=== PATIENT | male | born 1955 | race Caucasian/White ===

== ENCOUNTER → 2018-10-17 | Outpatient (CLI) | payer SELFPAY ==
[~2018-10-17] MED LIST: LEVAQUIN 5500 MG/TA1 PO; MOTRIN 200200 MG/TAB PO
[2018-10-17 12:06] LABS: BUDDING YEAST Present /hpf; MUCOUS Present /lpf; PH 6 (5-8); SQUAMOUS EPITHELIAL None Seen /hpf; URINE APPEARANCE Turbid; URINE BACTERIA Occasional /hpf; URINE BILIRUBIN Negative (NEGATIVE); URINE BLOOD 2+ (NEGATIVE); URINE COLOR Amber; URINE GLUCOSE 1+ (NEGATIVE); URINE KETONE Negative (NEGATIVE); URINE LEUKOCYTE ESTERASE Trace (NEGATIVE); URINE NITRATE Negative (NEGATIVE); URINE PROTEIN(semi-quant) 2+ (NEGATIVE); URINE RBC >50 /hpf; URINE UROBILINOGEN Negative (NEGATIVE)
[2018-10-17 12:07] LABS: COLLECTION METHOD CLEAN CATCH
[2018-10-17 12:13] LABS: BASO # 0.1 (0.0-0.2); BASO % 0.6 % (0.0-2.0); EOS # 0.2 (0.0-0.7); EOS % 2.3 % (0-4.0); GRAN # 7.2 (1.4-6.5); GRAN % 70.8 % (42.2-75.2); HEMATOCRIT 42.7 % (42.0-52.0); HEMOGLOBIN 14.2 g/dl (13.5-18.0); LYMPH # 1.8 (1.2-3.4); LYMPH % 17.4 % (20.0-51.0); MEAN CELL VOLUME 88 fl (80.0-100.0); MEAN CORPUSCULAR HEMOGLOBIN 29 pg (27.0-31.0); MEAN CORPUSCULAR HGB CONC 33 g/dl (33.0-37.0); MONO # 0.8 (0.1-0.6); MONO % 7.6 % (1.7-9.3); PLATELET COUNT 295 K/mm3 (130-400); RED BLOOD COUNT 4.88 M/mm3 (4.20-5.60); REDCELL DISTRIBUTION WIDTH-CV 13.4 % (11.5-14.5)
[2018-10-17 12:17] LABS: CALCIUM 8.8 mg/dL (8.4-10.2); CREATININE, serum 2.09 (0.66-1.25); POTASSIUM 3.1 mmol/L (3.4-5.0)
== END ==
LOC: COL.LAB 11:36
PROVIDERS: Family Medicine
DX: R31.0 Gross hematuria (principal)

== ENCOUNTER → 2018-10-17 | Outpatient (CLI) | payer SELFPAY | LOC: ZCOL.LAB 12:08 | DX: R31.0 Gross hematuria (principal) ==

== ENCOUNTER → 2018-10-25 | Outpatient (CLI) | payer SELFPAY ==
[~2018-10-25] MED LIST changes: +PREDNISONE20 MG PO; +TENORMIN 2525 MG/TAB PO; +TYLENOL 325MG325 MG PO
[2018-10-25 16:17] LABS: CALCIUM 9.1 mg/dL (8.4-10.2); CREATININE, serum 1.06 (0.66-1.25); POTASSIUM 3.9 mmol/L (3.4-5.0)
== END ==
LOC: ZLAB.STJ 15:09
PROVIDERS: Family Medicine
DX: Z01.89 Encounter for other specified special examinations (principal)

== ENCOUNTER → 2019-01-01 | Outpatient (CLI) | payer SELFPAY ==
[~2019-01-01] MED LIST changes: +FLOMAX 0.40.4 MG/CAP PO
[2019-01-01 12:42] LABS: ALBUMIN 4.1 gm/dL (3.5-5.0); BILIRUBIN,TOTAL 0.8 mg/dL (0.0-1.0); CALCIUM 9.1 mg/dL (8.4-10.2); CREATININE, serum 1.33 (0.66-1.25); POTASSIUM 4.1 mmol/L (3.4-5.0); TOTAL PROTEIN 7.8 gm/dL (6.4-8.2)
[2019-01-01 12:45] LABS: MEAN CELL VOLUME 86 fl (80.0-100.0); MEAN CORPUSCULAR HGB CONC 31 g/dl (33.0-37.0); MEAN PLATELET VOLUME 10.7 fl (7.4-10.4); PLATELET COUNT 135 K/mm3 (130-400); RED BLOOD COUNT 3.64 M/mm3 (4.20-5.60); REDCELL DISTRIBUTION WIDTH-CV 17.7 % (11.5-14.5)
[2019-01-01 12:46] LABS: HEMATOCRIT 31.4 % (42.0-52.0); HEMOGLOBIN 9.6 g/dl (13.5-18.0); MEAN CORPUSCULAR HEMOGLOBIN 26 pg (27.0-31.0)
[2019-01-01 13:12] LABS: THYROID STIMULATING HORMONE 6.23 uIU/mL (0.465-4.680)
[2019-01-01 13:15] LABS: ANISOCYTOSIS 1+; EOSINOPHIL 1 % (0-4); LYMPHOCYTE 33 % (20.0-51.0); METAMYELOCYTE 1 % (0-0); MYELOCYTE 9 % (0-0); NEUTROPHILS 51 % (42.0-75.2); NUCLEATED RED BLOOD CELL 5 (0-6); PLATELET ESTIMATE NORMAL (NORMAL)
[2019-01-01 13:16] LABS: HYPOCHROMIA 3+
== END ==
LOC: ZCOL.LAB 11:42
PROVIDERS: Family Medicine
DX: R53.1 Weakness (principal); R63.4 Abnormal weight loss; R53.83 Other fatigue; R74.8 Abnormal levels of other serum enzymes

== ENCOUNTER → 2019-01-02 | Outpatient (CLI) | payer SELFPAY ==
[~2019-01-02] MED LIST changes: +PERCOCET 325 MG1 TA2 PO; +ZOFRAN ODT4 MG PO
[2019-01-02 10:12] LABS: RETIC # 0.1 M/mm3 (0.02-0.16); RETIC % 2.7 % (0.5-3.52)
[2019-01-02 23:35] LABS: T3 FREE (TRI-IODOTHYRONINE) 2.9 pg/mL (1.7-3.7)
[2019-01-03 00:38] LABS: TRANSFERRIN 218 mg/dL (180-329)
[2019-01-04 04:24] LABS: EBV NUCLEAR ANTIGEN (EBNA)-IgG XXX; EBV NUCLEAR ANTIGEN-IgM*** XXX
== END ==
LOC: COL.RAD 08:44
PROVIDERS: Family Medicine
DX: D64.9 Anemia, unspecified (principal); M54.5 Low back pain; R74.8 Abnormal levels of other serum enzymes; R53.83 Other fatigue; R79.89 Other specified abnormal findings of blood chemistry; M47.816 Spondylosis without myelopathy or radiculopathy, lumbar region

== ENCOUNTER 2019-01-04 12:12 | Emergency (ER) | payer SELFPAY ==
[~2019-01-04] VITALS: Ht 182.9 cm; Wt 90.9 kg
[~2019-01-04 12:12] MED LIST changes: -PERCOCET 325 MG1 TA2 PO; -ZOFRAN ODT4 MG PO
[2019-01-04 12:24] VITALS: TEMP 98.2
[2019-01-04 14:04] LABS: CALCIUM 9.3 mg/dL (8.4-10.2); CREATININE, serum 1.25 (0.66-1.25); MAGNESIUM 2.3 mg/dL (1.6-2.3); POTASSIUM 3.4 mmol/L (3.4-5.0)
[2019-01-04] MEDS ORDERED: ZOFRAN ODT4 MG PO (14:28)
[2019-01-04] MEDS ORDERED: PERCOCET 325 MG1 TA2 PO (14:28)
[2019-01-04 15:42] VITALS: BP 145/70; PULSE 95
== END 2019-01-04 15:44 | disposition home or self-care (01) ==
LOC: COL.ER 12:12
PROVIDERS: Physician Assistant
DX: C61 Malignant neoplasm of prostate (principal); C79.9 Secondary malignant neoplasm of unspecified site
CPT/HCPCS: J1885; J2405; J7030

== ENCOUNTER 2019-04-26 02:18 | Inpatient (IN) | payer SELFPAY ==
[~2019-04-26] VITALS: Ht 180.3 cm; Wt 90.9 kg
[~2019-04-26 02:18] MED LIST changes: +PERCOCET 325 MG1 TA2 PO; +ZOFRAN ODT4 MG PO
[2019-04-26 03:20] LABS: BASO % 0.4 % (0.0-2.0); EOS # 0.1 (0.0-0.7); EOS % 1.2 % (0-4.0); GRAN % 77.7 % (42.2-75.2); LYMPH % 12.6 % (20.0-51.0); MEAN CELL VOLUME 87 fl (80.0-100.0); MEAN CORPUSCULAR HGB CONC 34 g/dl (33.0-37.0); MEAN PLATELET VOLUME 9.7 fl (7.4-10.4); MONO # 0.6 (0.1-0.6); MONO % 7.2 % (1.7-9.3); PLATELET COUNT 177 K/mm3 (130-400); REDCELL DISTRIBUTION WIDTH-CV 16.2 % (11.5-14.5)
[2019-04-26 03:23] LABS: HEMATOCRIT 27.8 % (42.0-52.0); HEMOGLOBIN 9.3 g/dl (13.5-18.0); MEAN CORPUSCULAR HEMOGLOBIN 29 pg (27.0-31.0)
[2019-04-26 03:40] LABS: ALBUMIN 4.3 gm/dL (3.5-5.0); BILIRUBIN,TOTAL 0.6 mg/dL (0.0-1.0); CALCIUM 8.3 mg/dL (8.4-10.2); CREATININE, serum 2.29 (0.66-1.25); POTASSIUM 3.4 mmol/L (3.4-5.0); TOTAL PROTEIN 7.2 gm/dL (6.4-8.2)
[2019-04-26 11:45] VITALS: BP 144/66; PULSE 68; TEMP 97.7
--- NOTE | 2019-04-26 11:45 | NUR ---
Patient arrives to [facility] for recovery at 1145 via cart, accompanied by TUBE COATER Teresa. He is sitting up in bed, alert and oriented. When asked to rate pain, he states it is "manageable". He is on 3L nasal cannula. VSS and WNL. CBI running and urine in catheter is light red with sediment. Offered patient something to eat/drink, he requests and receives water.
[2019-04-26 12:00] VITALS: BP 146/59; PULSE 66
--- NOTE | 2019-04-26 12:00 | NUR ---
VSS and WNL on room air. Patient is sipping on water. He denies pain or nausea. CBI running. Urine is clear, red.
--- NOTE | 2019-04-26 12:30 | NUR ---
Report given to ARACELIS Strong. Patient transported to floor via cart. ARACELIS Strong assumes care at this time.
[2019-04-26 12:38] VITALS: BP 136/59; PULSE 70; TEMP 98.2
--- NOTE | 2019-04-26 12:44 | NUR ---
PT TO ROOM 324 POST OP WITH REPORT FROM LARRY IN OUT PATIENT. THEY HAD TO RECOVER UNTIL A ROOM OPENED. PT ARRIVED ON FLOOR @1230. PT HAS HAD A CYSTO AND TURP. 4250 CREDIT IN CBI. IV TO PUMP PER ORDERS. PT REPORTING NO PAIN AT THIS TIME. URINE IN BAG IS FRUIT PUNCH RED.
[2019-04-26 13:38] VITALS: BP 134/38; PULSE 73; TEMP 98
[2019-04-26] MEDS ORDERED: XTANDI40 MG PO (13:58)
[2019-04-26] MEDS ORDERED: CASODEX 50MG TA50 MG PO (13:58)
[2019-04-26] MEDS ORDERED: TENORMIN 2525 MG/TAB PO (13:59)
[2019-04-26] MEDS ORDERED: VITAMIN D31000 I1 PO (14:07)
[2019-04-26] MEDS ORDERED: CALCIUM 600MG+D1 TAB PO (14:08)
[2019-04-26 14:38] VITALS: BP 138/57; PULSE 73; TEMP 97.7
--- NOTE | 2019-04-26 18:55 | NUR ---
REPORT TO ZAHRA HSU.
[2019-04-26 19:14] VITALS: BP 121/57; PULSE 99; TEMP 97.7
--- NOTE | 2019-04-26 20:00 | NUR ---
Report received. Assumed care for plant operator/shift supervisor. A&Ox3-drowsy. Assessment complete. CBI going at a moderate rate-pink to reddish in color a few old clots. Plan of care discussed for this shift to include CBI clamping if output lightens in color. Verbalizes understanding. Denies pain/nausea/shortness of breath. States he is just very drowsy. Denies needs. Call light in reach. Will monitor.
--- NOTE | 2019-04-26 22:00 | NUR ---
CBI to s slow rate-has remained light pink since 2129. Will monitor and clamp CBI per dr order.
[2019-04-27 00:06] VITALS: BP 128/53; PULSE 69; TEMP 98.3
--- NOTE | 2019-04-27 01:00 | NUR ---
CBI clamped at this time. Output has remained light yellow-no clots. Will continue to monitor output.
[2019-04-27 04:00] VITALS: BP 136/59; PULSE 65; TEMP 98.1
--- NOTE | 2019-04-27 05:20 | NUR ---
CBI has remained clamped since approx 0100. Output continues to be light yellow/light pink. Total output since clamping is 650mls. Denies pain/shortness of breath/nausea. Encouraged to call for needs. Will monitor.
[2019-04-27 07:28] LABS: MEAN CELL VOLUME 88 fl (80.0-100.0); MEAN CORPUSCULAR HGB CONC 33 g/dl (33.0-37.0); MEAN PLATELET VOLUME 10.4 fl (7.4-10.4); PLATELET COUNT 165 K/mm3 (130-400); RED BLOOD COUNT 2.96 M/mm3 (4.20-5.60); REDCELL DISTRIBUTION WIDTH-CV 16.4 % (11.5-14.5)
[2019-04-27 07:32] LABS: HEMATOCRIT 26.1 % (42.0-52.0); HEMOGLOBIN 8.5 g/dl (13.5-18.0); MEAN CORPUSCULAR HEMOGLOBIN 29 pg (27.0-31.0)
[2019-04-27 07:38] LABS: ALBUMIN 3.7 gm/dL (3.5-5.0); BILIRUBIN,TOTAL 0.4 mg/dL (0.0-1.0); CALCIUM 7.3 mg/dL (8.4-10.2); POTASSIUM 3.2 mmol/L (3.4-5.0); TOTAL PROTEIN 6.3 gm/dL (6.4-8.2)
--- NOTE | 2019-04-27 08:24 | NUR ---
PATIENT ASSESSMENT COMPLETED. HE REQUESTED TYLENOL FOR LOWER BACK PAIN WILL CHECK MAR AND PROVIDE MEDICATION. BREAKFAST COMPLETED. NO OTHER NEEDS AT THIS TIME.
[2019-04-27 08:29] VITALS: BP 130/79; PULSE 93; TEMP 98
--- NOTE | 2019-04-27 08:30 | NUR ---
PRN PAIN MEDICATION PROVIDED
--- NOTE | 2019-04-27 09:51 | NUR ---
PATIENT RESTING IN BED READING HIS IPAD. HE REPORTS THAT HIS PAIN IS A LITTLE BETTER BUT NOT MUCH. HE DENIES NEED FOR FURTHER MEDICATIONS. AND DOESN'T WANT THE SCD'S ON HIS LEGS AT THIS TIME
--- NOTE | 2019-04-27 10:55 | NUR ---
PATIENT SLEEPING IN BED. NO SIGNS OF DISTRESS NOTED
[2019-04-27 11:53] VITALS: BP 136/57; PULSE 69; TEMP 98.2
[2019-04-27 12:37] LABS: ANISOCYTOSIS 1+; BAND 4 % (0-10); HYPOCHROMIA 2+; LYMPHOCYTE 9 % (20.0-51.0); NEUTROPHILS 77 % (42.0-75.2); PLATELET ESTIMATE NORMAL (NORMAL); TEAR DROP CELLS 1+
--- NOTE | 2019-04-27 13:41 | NUR ---
Plan; Plan to return home unless otherwise specified by . Assess: CARMENZA met with patient in room about Dc. Patient indicated that he is not sure about Home health services. Patient reports his PCP as Dr. Novoa. Patient reports the use of a walker prn but no other DME. Patient reports using [facility] for RX. Denies having a DPOA or and emergency contact. Action: CARMENZA educated patient on resources and supports. Patient may need home health. Will continue to follow.
--- NOTE | 2019-04-27 15:20 | NUR ---
PATIENT DISCHARGE INSTRUCTIONS REVIEWED WITH PATIENT. HE STATES THAT HE IS HAS USED THE [place] LEG BAG BEFORE AND CAN PUT IT ON BY HIMSELF. DENIES FURTHER QUESTIONS
--- NOTE | 2019-04-27 15:30 | NUR ---
PATIENT COMPLAINS OF LEFT HIP AND RIGHT KNEE PAIN. PRN ROXICODONE PROVIDED. WE ARE WAITING ON THE CAB TO ARRIVE TO BRING CELIO HOME. CAB VOUCHER GIVEN AND CAB WILL ARRIVE AROUND 1600
== END 2019-04-27 16:00 | disposition home or self-care (01) | DRG 713 ==
LOC: COL.ER 02:18 → SURG 10:50
PROVIDERS: Emergency Medicine; Physician Assistant; Urology; ADMIT Student in an Organized Health Care Education/Training Program
PROC: 0VT08ZZ Resection of Prostate, Via Natural or Artificial Opening Endoscopic (ICD-10-PCS; principal; 2019-04-26 10:30)
DX: C61 Malignant neoplasm of prostate (principal); N17.9 Acute kidney failure, unspecified; C79.51 Secondary malignant neoplasm of bone; E87.2 Acidosis; N32.0 Bladder-neck obstruction; R33.8 Other retention of urine; D64.9 Anemia, unspecified; R74.0 Nonspecific elevation of levels of transaminase and lactic acid dehydrogenase [LDH]; M10.9 Gout, unspecified; N18.9 Chronic kidney disease, unspecified; I12.9 Hypertensive chronic kidney disease with stage 1 through stage 4 chronic kidney disease, or unspecified chronic kidney disease
CPT/HCPCS: 99222-AI; 99239; J0690; J1100; J1170; J2405; J2704; J3010; J7030; J7120

== ENCOUNTER 2019-04-29 11:06 | Inpatient (IN) | payer SELFPAY ==
[~2019-04-29] VITALS: Ht 180.3 cm; Wt 90.4 kg
[~2019-04-29 11:06] MED LIST changes: +CALCIUM 600MG+D1 TAB PO; +CASODEX 50MG TA50 MG PO; +VITAMIN D31000 I1 PO; +XTANDI40 MG PO
[2019-04-29 11:40] LABS: COLLECTION METHOD CLEAN CATCH
[2019-04-29 11:43] LABS: BASO % 0.6 % (0.0-2.0); EOS # 0.2 (0.0-0.7); EOS % 2.3 % (0-4.0); GRAN # 4.7 (1.4-6.5); GRAN % 71.5 % (42.2-75.2); HEMATOCRIT 30.8 % (42.0-52.0); LYMPH # 1.2 (1.2-3.4); LYMPH % 17.7 % (20.0-51.0); MEAN CELL VOLUME 88 fl (80.0-100.0); MEAN CORPUSCULAR HEMOGLOBIN 29 pg (27.0-31.0); MEAN CORPUSCULAR HGB CONC 33 g/dl (33.0-37.0); MEAN PLATELET VOLUME 10.8 fl (7.4-10.4); MONO # 0.5 (0.1-0.6); MONO % 6.8 % (1.7-9.3); PLATELET COUNT 220 K/mm3 (130-400); RED BLOOD COUNT 3.49 M/mm3 (4.20-5.60); REDCELL DISTRIBUTION WIDTH-CV 16.2 % (11.5-14.5)
[2019-04-29 11:54] LABS: PH 6 (5-8); SQUAMOUS EPITHELIAL None Seen /hpf; URINE APPEARANCE Cloudy; URINE BACTERIA None Seen /hpf; URINE BILIRUBIN Negative (NEGATIVE); URINE BLOOD 3+ (NEGATIVE); URINE COLOR Red; URINE GLUCOSE Negative (NEGATIVE); URINE KETONE 1+ (NEGATIVE); URINE LEUKOCYTE ESTERASE 2+ (NEGATIVE); URINE NITRATE Negative (NEGATIVE); URINE PROTEIN(semi-quant) 2+ (NEGATIVE); URINE RBC >50 /hpf; URINE UROBILINOGEN Negative (NEGATIVE)
[2019-04-29 11:57] LABS: ALANINE AMINOTRANSFERASE 21 U/L (21-72); ALBUMIN 4.2 gm/dL (3.5-5.0); ALKALINE PHOSPHATASE 203 U/L (50-136); ANION GAP 12 mmol/L (7-16); AST,SGOT 42 U/L (15-37); BILIRUBIN,TOTAL 0.7 mg/dL (0.0-1.0); BLOOD UREA NITROGEN 19 mg/dL (9-20); CALCIUM 7.3 mg/dL (8.4-10.2); CARBON DIOXIDE 24 mmol/L (22-30); CHLORIDE 101 mmol/L (98-107); CREATININE, serum 0.71 (0.66-1.25); GLUCOSE 107 mg/dL (74-106); LIPASE 104 U/L (23-300); POTASSIUM 3.1 mmol/L (3.4-5.0); SODIUM 138 mmol/L (137-145); TOTAL PROTEIN 7.1 gm/dL (6.4-8.2)
[2019-04-29 12:17] LABS: TROPONIN-I < 0.012 ng/mL (0.000-0.035)
[2019-04-29 20:59] VITALS: BP 167/66; PULSE 87; TEMP 97.9
--- NOTE | 2019-04-29 21:30 | NUR ---
Patient arrived to medical floor @ 2100. States he is in extreme pain, 10/10 in back. Per eMAR, has not had pain meds since 1315. Will review floor orders and administer pain meds tova. Patient not well enough to complete admission assessment. Will check back when pain meds have been effective. Kurtz draining reddish, clear urine. Patient stated, "it hasn't been emptied all day." Kurtz emptied, 1000ml noted and recorded. Will review and record patient's home meds when pain is in control. Denies further needs at this time. Will continue to monitor.
[2019-04-29 23:54] VITALS: BP 139/49; PULSE 99; TEMP 98.5
--- NOTE | 2019-04-30 04:21 | NUR ---
Patient in bed, resting. States pain is 3/10 in back. Prn pain medication given per patient request. Admission assessment complete now that pain is under control. Denies further needs at this time. Will continue to monitor.
[2019-04-30 04:48] VITALS: BP 138/53; PULSE 89; TEMP 98.6
[2019-04-30 07:30] VITALS: BP 149/68; PULSE 81; TEMP 97.7
--- NOTE | 2019-04-30 08:10 | NUR ---
(04/29/19) [employer] Presser responded to ER consult for patient who reports he needs more help and can't move. Patient states he needs help but is not sure what he needs. SW spoke with patient about Home Health, which was addressed with him over the weekend during last hospital stay. Patient states he doesn't think he can return home as he can't even get up the stairs to his place. Patient reports he has been at [facility] before but checked himself out of there. SW presented Medicare.gov list of alf facilities. Patient states he has no preferences. SW sent referrals to [facility] and [facility]. CARMENZA contacted Juan at [facility] who advised patient left AMA so [facility] would not accept new referral. CARMENZA contacted Thom at [facility] and Carmen at [facility] who both advised they cannot take patient tonight but would continue to review records tomorrow. SW to continue to follow.
[2019-04-30 08:57] LABS: BASO % 0.4 % (0.0-2.0); EOS # 0.2 (0.0-0.7); GRAN # 3.1 (1.4-6.5); GRAN % 61.8 % (42.2-75.2); LYMPH # 1.3 (1.2-3.4); LYMPH % 26.6 % (20.0-51.0); MEAN CELL VOLUME 89 fl (80.0-100.0); MEAN CORPUSCULAR HGB CONC 32 g/dl (33.0-37.0); MEAN PLATELET VOLUME 10.6 fl (7.4-10.4); MONO # 0.4 (0.1-0.6); PLATELET COUNT 181 K/mm3 (130-400); RED BLOOD COUNT 2.94 M/mm3 (4.20-5.60); REDCELL DISTRIBUTION WIDTH-CV 16.4 % (11.5-14.5)
[2019-04-30 08:59] LABS: HEMATOCRIT 26.1 % (42.0-52.0); HEMOGLOBIN 8.4 g/dl (13.5-18.0); MEAN CORPUSCULAR HEMOGLOBIN 29 pg (27.0-31.0)
--- NOTE | 2019-04-30 09:20 | NUR ---
CARMENZA contacted and faxed updates to [facility] and [facility]. Thom, at [facility], reports that they would need proof of finances. CARMENZA consulted Financial Counselor, Santosh. Santosh reports that the patient is over income for Medicaid, but that they have completed a Financial Assistance Application with him in December. Santosh to provide SW with a copy of the patient's FAA. CARMENZA to continue to follow.
--- NOTE | 2019-04-30 09:30 | NUR ---
Pt assessment completed and charted. Pt resting in bed, easily arousable by voice. Flat affect w/ a lot of sighs, keeping eyes closed. Pt is A&O. Pt states his pain is "too high" to rate, c/o back pain. Pt received IV dilaudid PRN per MAR at this time. NS@ 125 ml/hr to RFA IV w/o complications. SCDs on BLE. Pt on RA, breathing is even and unlabored. Pulses strong bilaterally. pt did not eat breakfast this morning, states he is "not hungry". Kurtz in place draining reddish clear urine. Tele in place. No other concerns at this time.
[2019-04-30 09:38] LABS: CALCIUM 6.4 mg/dL (8.4-10.2); CREATININE, serum 0.63 (0.66-1.25); MAGNESIUM 1.7 mg/dL (1.6-2.3); POTASSIUM 3.5 mmol/L (3.4-5.0)
[2019-04-30 11:18] VITALS: BP 139/60; PULSE 80; TEMP 98
--- NOTE | 2019-04-30 11:28 | NUR ---
Santosh, with Financial Counseling, provided CARMENZA with the patient's Financial Assistance Application. CARMENZA faxed the application to Thom at [facility] [place]. Carmen, at [facility], reports that they are unable to accept the patient. CARMENZA then updated and collaborated with the clinical team. The patient is to have further imaging of his spine today. PT/OT have been ordered. CARMENZA then met with the patient to update and discuss goals of care. The patient reports that he does not know what he wants. He states that he would like to talk to his oncologist, Dr. Gloria, about his treatment plan and to find out more about what is going on. CARMENZA notified the hospitalist of this. The patient does not have advanced directives completed and he was not interested in completing a DPOA-HC at this time. He states that he does not have anyone. He states that he does have two brothers, but does not know where they are at and does not have their phone numbers. SW awaiting Meetyl's screen and will continue to follow.
--- NOTE | 2019-04-30 12:30 | NUR ---
Pt received fentanyl patch at 1100 and PO percocet at this time prior to leaving for MRI.
--- NOTE | 2019-04-30 12:45 | NUR ---
Pt down for MRI at this time.
--- NOTE | 2019-04-30 13:15 | NUR ---
Pt back from MRI at this time, unable to complete MRI d/t pt pain.
[2019-04-30 15:25] VITALS: BP 146/70; PULSE 84; TEMP 98.2
--- NOTE | 2019-04-30 16:28 | NUR ---
Thom, at [facility], reports that they really are unable to accept the patient until they know more about what the patient is wanting, whether is be SNF, LTC, or hospice. That way they can bill appropriately. SW to inform the patient and will continue to follow to ensure a safe discharge.
--- NOTE | 2019-04-30 18:34 | NUR ---
Two attempts this afternoon post MRI to adminiter pain medication, was told by MRI techs that pt was complaining of pain. Pt sleeping on one attempt. Pt refused pain medication at dinner time, stated "he would be ok" at this time. Pt sitting up eating dinner.
[2019-04-30 20:00] VITALS: BP 140/66; PULSE 91; TEMP 98.3
--- NOTE | 2019-04-30 20:50 | NUR ---
Resting in bed. Assessment complete. Right lower lobe crackles. Otherwise clear. Heart sounds normal. Bowels active x4. Pulses strong throughout. No edema noted. SCD in place. Kurtz to dependent drainage with clear yellow urine. IV right forearm without complications at this time. Rating lower back pain 4/10. Provided with PRN percocet at this time. Call light in reach. Denies other needs.
[2019-04-30 22:00] VITALS: BP 140/66; PULSE 91; TEMP 98.3
--- NOTE | 2019-04-30 22:47 | NUR ---
Reports 7/10 lower back pain after waking up from sleep. Provided with PRN dilaudid at this time.
--- NOTE | 2019-04-30 23:36 | NUR ---
Patient reports pain unrelieved and now radiating to left thigh. Dilaudid order states may repeat for severe pain and POSS score <3. Rates pain 7/10, awake and alert. Dose of 0.5mg repeated.
[2019-05-01] VITALS (7 sets, daily range): BP systolic 132–149; BP diastolic 57–73; PULSE 92–101; TEMP 97.9–98.7
--- NOTE | 2019-05-01 00:01 | NUR ---
Patient reports pain relief with second dose of dilaudid. Denies other needs at this time. Call light in reach.
--- NOTE | 2019-05-01 04:26 | NUR ---
Patient resting in bed asleep. Appears comfortable at this time. Will reassess pain once awake.
--- NOTE | 2019-05-01 06:00 | NUR ---
Patient received x1 dose of percocet and x2 doses of dilaudid for pain control throughout night. Otherwise uneventful night. Resting in bed this AM. Call light in reach.
--- NOTE | 2019-05-01 07:07 | NUR ---
Report given to ARACELIS Delacruz
[2019-05-01 09:06] LABS: BASO % 0.5 % (0.0-2.0); EOS # 0.2 (0.0-0.7); EOS % 3.2 % (0-4.0); GRAN % 66.2 % (42.2-75.2); LYMPH # 1.3 (1.2-3.4); LYMPH % 22.1 % (20.0-51.0); MEAN CELL VOLUME 89 fl (80.0-100.0); MEAN CORPUSCULAR HGB CONC 32 g/dl (33.0-37.0); MEAN PLATELET VOLUME 10.8 fl (7.4-10.4); MONO # 0.4 (0.1-0.6); MONO % 7.2 % (1.7-9.3); PLATELET COUNT 203 K/mm3 (130-400); RED BLOOD COUNT 3.13 M/mm3 (4.20-5.60); REDCELL DISTRIBUTION WIDTH-CV 16.5 % (11.5-14.5)
[2019-05-01 09:07] LABS: HEMATOCRIT 27.8 % (42.0-52.0); HEMOGLOBIN 8.8 g/dl (13.5-18.0); MEAN CORPUSCULAR HEMOGLOBIN 28 pg (27.0-31.0)
[2019-05-01 09:26] LABS: ALBUMIN 3.5 gm/dL (3.5-5.0); BILIRUBIN,TOTAL 0.7 mg/dL (0.0-1.0); CALCIUM 7.2 mg/dL (8.4-10.2); CREATININE, serum 0.61 (0.66-1.25); MAGNESIUM 1.5 mg/dL (1.6-2.3); POTASSIUM 3.3 mmol/L (3.4-5.0); TOTAL PROTEIN 6.2 gm/dL (6.4-8.2)
--- NOTE | 2019-05-01 09:56 | NUR ---
Pt assessment completed and charted. Morning medications administered per JUL. Pt laying in bed, tolerated breakfast ok. Rating back pain 2-3/10, denies need for pain medication at this time. Kurtz draining clear, yellow urine, 850ml emptied at this time. Pt on room air, denies SOB, breathing is even and unlabored. Pt on tele, NS. Heart RRR. BSx4. Pulses strong bilaterally. RFA IV w/ NS at 125ml running w/o complications. No other concerns noted at this time. Pt informed to let this nurse know if he needed anything for pain. Will continue to check on pt.
--- NOTE | 2019-05-01 13:50 | NUR ---
Pt rating pain 3/10, denies need for pain medication. Pt has been asked multiple times if he would like anything for pain. Pt has very flat affect, soft tone and sighs.
--- NOTE | 2019-05-01 14:51 | NUR ---
Pt resting in bed comfortably, will reassess need for pain medication once awake.
--- NOTE | 2019-05-01 20:10 | NUR ---
Provided with second dose of potassium replacement. Denies needs at this time. Call light in reach.
--- NOTE | 2019-05-01 20:10 | NUR ---
Resting in bed. Assessment complete. Left lower lobe crackles otherwise clear. Heart sounds tachy 100s. Bowels active x4. Pulses strong throughout. No edema noted. Kurtz to dependent drainage with yellow clear urine, 600ml out at this time. Reports 3/10 lower back pain, denies need for intervention at this time. Left shoulder/upper back fentanyl patch in place. Right forearm INT flushed without complications. Potassium replaced this evening per protocol. Denies needs. Call light in reach.
--- NOTE | 2019-05-02 00:13 | NUR ---
Reports 4/10 back pain. Provided with PRN percocet. Denies other needs at this time.
--- NOTE | 2019-05-02 01:54 | NUR ---
Patient complaining of level 8 pain to left leg, cramping. Patient with facial grimacing and moaning. Given PRN Dilaudid 0.5 mg IV at this time. Given warm blanket for leg to see if it helps as well.
[2019-05-02 03:36] VITALS: BP 154/67; PULSE 94; TEMP 98.5
--- NOTE | 2019-05-02 03:48 | NUR ---
Patient reports severe back and left leg pain. 12/15. Patient rubbing leg, unable to find comfortable position and diaphoretic. Provided with PRN dilaudid at this time.
--- NOTE | 2019-05-02 04:20 | NUR ---
Patient continues to have severe leg pain 11/14. Diaphoretic. Unable to find comfortable position. Attempted assisting with repositioning in bed-pillows/warm blanket. Patient has no relief. Repeatly states "oh shit oh god, this hurts so bad." Dilaudid order states may repeat x1 dose in 30 minutes if severe pain and POSS <3. Patient awake and continued pain. Providing second dose at this time.
--- NOTE | 2019-05-02 04:43 | NUR ---
Patient asleep after second adminstration of dilaudid. Respirations 16 at this time. Will monitor.
--- NOTE | 2019-05-02 06:27 | NUR ---
Patient received x1 dose of percocet and x2 doses of dilaudid for pain throughout night. Otherwise uneventful night. Resting in bed this AM .
[2019-05-02 07:02] LABS: BASO % 0.5 % (0.0-2.0); EOS # 0.2 (0.0-0.7); EOS % 2.5 % (0-4.0); GRAN # 4.4 (1.4-6.5); GRAN % 69.5 % (42.2-75.2); LYMPH # 1.2 (1.2-3.4); LYMPH % 19.5 % (20.0-51.0); MEAN CELL VOLUME 91 fl (80.0-100.0); MEAN CORPUSCULAR HGB CONC 32 g/dl (33.0-37.0); MEAN PLATELET VOLUME 10.9 fl (7.4-10.4); MONO # 0.5 (0.1-0.6); MONO % 7.1 % (1.7-9.3); PLATELET COUNT 236 K/mm3 (130-400); RED BLOOD COUNT 3.17 M/mm3 (4.20-5.60); REDCELL DISTRIBUTION WIDTH-CV 16.4 % (11.5-14.5)
[2019-05-02 07:03] LABS: HEMATOCRIT 28.8 % (42.0-52.0); HEMOGLOBIN 9.1 g/dl (13.5-18.0); MEAN CORPUSCULAR HEMOGLOBIN 29 pg (27.0-31.0)
[2019-05-02 07:15] LABS: CALCIUM 8.2 mg/dL (8.4-10.2); CREATININE, serum 0.76 (0.66-1.25); MAGNESIUM 1.9 mg/dL (1.6-2.3)
--- NOTE | 2019-05-02 07:31 | NUR ---
Report given to ARACELIS Hurtado
[2019-05-02 07:34] VITALS: BP 144/63; PULSE 93; TEMP 97.9
[2019-05-02 12:01] VITALS: BP 138/66; PULSE 100; TEMP 98.1
--- NOTE | 2019-05-02 12:31 | NUR ---
1206: SEE EMAR FOR DILAUDID ADMINISTERED PRIOR TO MRI ORDERED. SURVEILLANCE AGENT TAKING PATIENT FOR PROCEDURE. CALLED DR [facility] PER CONSULT ORDER. PROVIDER NOT AVAILABLE D/T BEING ON VACATION. DR MENG COVERING. DOESN'T HAVE HOSPITAL PRIVILEDGES. DR PINO NOTIFIED. CONSULT DC'D. DR BARROS TO BE CONSULTED BY DR PINO PER HIS VERBALIZATION.
[2019-05-02 16:03] VITALS: BP 139/60; PULSE 78; TEMP 98.7
--- NOTE | 2019-05-02 16:44 | NUR ---
CARMENZA attended clinical rounds. Goals of care was discussed. The patient is wanting to continue treatment for now. Dr. Gloria and Dr. Arreguin have been consulted. CARMENZA then followed up with the patient to discuss discharge plan and what kind of stay he is looking at, at [facility]. The patient states that he is unsure. SW reviewed a respite stay, SNF, long-term care. The patient was interested in a respite stay. CARMENZA contacted and faxed updates to Thom at [facility]. Thom reports that she is hoping to have someone from [facility] come talk to the patient about their rates. SW to continue to follow.
[2019-05-02 21:04] VITALS: BP 149/68; PULSE 94; TEMP 97.6
--- NOTE | 2019-05-02 23:42 | NUR ---
ASSESSMENT COMPLETE. RESTING IN BED. STATES "PAIN IS OKAY." DENIES NEEDS AT THIS TIME.
[2019-05-03 01:05] VITALS: BP 150/65; PULSE 88; TEMP 97.6
[2019-05-03 03:56] VITALS: BP 148/55; PULSE 82; TEMP 97.7
--- NOTE | 2019-05-03 04:36 | NUR ---
PRN percocet admin [phone] for RLE pain.
[2019-05-03 07:28] VITALS: BP 133/67; PULSE 72; TEMP 97.4
[2019-05-03 12:15] VITALS: BP 143/79; PULSE 79; TEMP 97.2
[2019-05-03 16:27] VITALS: BP 160/82; PULSE 100; TEMP 97.4
[2019-05-03] MEDS ORDERED: OMNICEF 300MG300 MG PO (16:34)
[2019-05-03] MEDS ORDERED: IBU400 MG PO (16:35)
[2019-05-03] MEDS ORDERED: PERCOCET 325 MG1 TA3 PO (16:36)
[2019-05-03] MEDS ORDERED: PROTONIX20 MG PO (16:37)
[2019-05-03] MEDS ORDERED: FENTANYL 50MCG TD (16:38)
--- NOTE | 2019-05-03 17:04 | NUR ---
The patient is wanting to pursue treatment and a respite stay at [facility]. CARMENZA contacted and faxed updates to Thom at [facility]. Kaylie, at [facility], also came up to visit the patient. The patient is agreeable to pay up front for a respite stay at [facility]. CARMENZA contacted the patient's PCP, Dr. Novoa, to inquire if she would follow the patient's care at [facility]. Dr. Novoa reports that she would. CARMENZA notified Kaylie at [facility]. Kaylie reports that they are able to accept the patient for a respite stay and will take the patient to his apartment for him to fern picker his checkbook and clothes. The patient is agreeable to this. The patient was to tentatively discharge today, 05/03, but vomited. CARMENZA updated Thom at [facility]. Thom reports that they are able to accept the patient tomorrow, 05/04, if ready to discharge. SW to continue to follow.
--- NOTE | 2019-05-03 17:11 | NUR ---
PATIENT UP TO BATHROOM WITH 2:1 ASSIST GAITBELT AND WALKER. LARGE BM. LARGE EPISODE OF PROJECTILE VOMITING. PATIENT ASHEN, DIAPHORETIC, AND TACHYCARDIC. C/O NAUSEA. DR. PINO NOTIFIED. ROUNDED ON PATIENT. DC CANCELLED AT THIS TIME D/T NAUSEA. SEE EMAR FOR ZOFRAN ADMINISTERED.
[2019-05-03 19:00] VITALS: BP 167/81; PULSE 102; TEMP 97.9
--- NOTE | 2019-05-03 20:20 | NUR ---
Pt. laying in bed at this time. Pt. is A&OX3, assessment complete. INT to rt. ac patent. Pt. reports pain at a 6, gave pain meds per orders. Pt. denies further needs, call light within reach.
[2019-05-04 00:08] VITALS: BP 150/60; PULSE 89; TEMP 98.2
[2019-05-04 03:09] VITALS: BP 139/80; PULSE 87; TEMP 97.7
[2019-05-04 07:37] VITALS: BP 162/80; PULSE 86; TEMP 97.5
[2019-05-04 08:09] LABS: BASO % 0.5 % (0.0-2.0); EOS # 0.2 (0.0-0.7); EOS % 3.4 % (0-4.0); GRAN # 3.8 (1.4-6.5); GRAN % 67.3 % (42.2-75.2); LYMPH # 1.1 (1.2-3.4); LYMPH % 19.2 % (20.0-51.0); MEAN CELL VOLUME 91 fl (80.0-100.0); MEAN CORPUSCULAR HGB CONC 31 g/dl (33.0-37.0); MEAN PLATELET VOLUME 10.6 fl (7.4-10.4); MONO # 0.4 (0.1-0.6); MONO % 7.8 % (1.7-9.3); PLATELET COUNT 266 K/mm3 (130-400); RED BLOOD COUNT 3.03 M/mm3 (4.20-5.60); REDCELL DISTRIBUTION WIDTH-CV 16.6 % (11.5-14.5)
[2019-05-04 08:13] LABS: CALCIUM 8.3 mg/dL (8.4-10.2); CREATININE, serum 0.72 (0.66-1.25)
[2019-05-04 08:24] LABS: HEMATOCRIT 27.5 % (42.0-52.0); HEMOGLOBIN 8.5 g/dl (13.5-18.0); MEAN CORPUSCULAR HEMOGLOBIN 28 pg (27.0-31.0)
[2019-05-04] MEDS ORDERED: ZOFRAN ODT4 MG PO (09:51)
[2019-05-04 12:23] VITALS: BP 168/68; PULSE 85; TEMP 97.5
[2019-05-04 12:27] VITALS: BP 168/68; PULSE 85; TEMP 97.5
--- NOTE | 2019-05-04 12:51 | NUR ---
1250: PATIENT LEAVING FLOOR FOR TRANSFER TO [facility]. LEFT VIA WC ACCOMPANIED BY PCT AND TRANSPORTATION. NO C/O NAUSEA AT DC. SEE EMAR FOR PAIN MEDICATION ADMIISTERED FOR C/O LOWER BACK PAIN AND LEFT LEG PAIN. TRANSFER PACKET WITH NARCOTIC SCRIPT SENT WITH PATIENT.
--- NOTE | 2019-05-04 13:08 | NUR ---
CARMENZA received a call from patients nurse about discharge today. CARMENZA faxed over discharge information to Thom at [facility], who indicated that patient will be picked up by 1 or 130. CARMENZA informed patients nurse of time.
== END 2019-05-04 12:50 | DRG 543 ==
LOC: COL.ER 11:06 → MEDICAL 14:26
PROVIDERS: Emergency Medicine; Nurse Practitioner Family; ADMIT Hospitalist
DX: C79.51 Secondary malignant neoplasm of bone (principal); N39.0 Urinary tract infection, site not specified; C77.5 Secondary and unspecified malignant neoplasm of intrapelvic lymph nodes; C61 Malignant neoplasm of prostate; F41.9 Anxiety disorder, unspecified; R33.9 Retention of urine, unspecified; N32.0 Bladder-neck obstruction; D64.9 Anemia, unspecified; E87.6 Hypokalemia; R74.8 Abnormal levels of other serum enzymes; E55.9 Vitamin D deficiency, unspecified; G89.3 Neoplasm related pain (acute) (chronic); M48.061 Spinal stenosis, lumbar region without neurogenic claudication; Z90.79 Acquired absence of other genital organ(s)
CPT/HCPCS: OP; 99231-AI; 99232-AI; 99239; A4216; A9585; G0378; J0696; J1170; J2405; J3010; J3475; J3480; J7030